=== PATIENT | female | born 1940 | race Caucasian/White ===

== ENCOUNTER 2023-01-13 13:29 | Outpatient (CLI) | payer MEDICARE, OTHER | END 2023-01-13 13:30 | disposition home or self-care (01) | LOC: BICRAD 13:29 | PROVIDERS: ATTEND Internal Medicine Rheumatology | DX: M25.561 Pain in right knee (principal); M17.11 Unilateral primary osteoarthritis, right knee ==

== ENCOUNTER 2024-02-17 11:14 | Outpatient (CLI) | payer MEDICARE, OTHER | END 2024-02-17 11:15 | disposition home or self-care (01) | LOC: BICRAD 11:14 | PROVIDERS: ATTEND Internal Medicine Rheumatology | DX: M81.0 Age-related osteoporosis without current pathological fracture (principal) | CPT/HCPCS: 72070 ==